=== PATIENT | male | born 1965 | race Caucasian/White ===

== ENCOUNTER 2019-11-13 09:11 | Outpatient (CLI) | payer OTHER ==
--- NOTE | 2019-11-13 09:53 | RAD ---
XR Cerv Sp Ap Lat STANDARD History: Cervical radicular pain Comparison: None. Findings: No acute fracture of the cervical spine. Retained cervical lordosis. Moderate narrowing C5/C6 and C6/C7 disc spaces. Large anterior and posterior osteophytes. No significant listhesis. No translation with flexion or extension. Impression: Moderate degenerative change lower cervical spine without significant translation with fl exion or extension.
--- NOTE | 2019-11-13 10:00 | RAD ---
XR Lumbar Spine 2 Or 3 View History: Lumbar radicular pain Comparison: None. Findings: No acute fracture of the lumbar spine. Multilevel degenerative disc space height loss, grea test at L5/S1. Multilevel degenerative retrolisthesis throughout the lumbar spine due to degenerative disc space height loss, greatest at L3/L4 which is approximately 6 mm retrolisthesis. No significant translation with flexion or extension. Moderate facet arthropathy at L4/L5 and L5/S1. Mild vascular calcifications. Impression: Multilevel spondylosis and degenerative listhesis without significant translation with fl exion or extension.
== END 2019-11-13 09:12 | disposition home or self-care (01) ==
LOC: RAD 09:11
PROVIDERS: ATTEND Nurse Practitioner Family
DX: M47.22 Other spondylosis with radiculopathy, cervical region (principal); M47.26 Other spondylosis with radiculopathy, lumbar region; M43.16 Spondylolisthesis, lumbar region
CPT/HCPCS: 72040; 72100